=== PATIENT | female | born 1985 | race Caucasian/White ===

== ENCOUNTER 2022-05-22 07:48 | Outpatient (CLI) | payer OTHER | END 2022-05-22 23:59 | disposition home or self-care (01) | LOC: LAB 07:48 | PROVIDERS: ATTEND Obstetrics & Gynecology | DX: Z01.812 Encounter for preprocedural laboratory examination (principal); Z20.822 Contact with and (suspected) exposure to COVID-19 ==

== ENCOUNTER 2022-05-23 09:15 | Day surgery (SDC) | payer OTHER ==
[~2022-05-23 09:15] MED LIST: FERRIC SUBSULFATE 8 ML SOLUTION TP ONE; SILVER NITRATE APPLICATOR STICK EACH TP ONE
[2022-05-23 09:46] LABS: *BILIRUBIN,URIN NEGATIVE (NEGATIVE); *CLARITY,URINE CLEAR (CLEAR); *COLOR,URINE YELLOW (YELLOW); *KETONES,URINE NEGATIVE (NEGATIVE); *UROBILINOGEN,URINE 0.2 E.U./dl (NORMAL); LEUKOCYTE ESTERASE ,URINE NEGATIVE (NEGATIVE); NITRITE, URINE NEGATIVE (NEGATIVE); UGLUCOSE NEGATIVE (NEGATIVE)
[2022-05-23 09:49] LABS: *BLOOD, URINE TRACE (NEGATIVE)
[2022-05-23 09:51] LABS: *URINE HCG, QUAL NEGATIVE (NEGATIVE)
[2022-05-23 09:52] LABS: MEAN CORPUSCULAR HEMOGLOBIN 24.6 uug (24.7-32.8); MEAN CORPUSCULAR VOLUME 75.3 fL (75.5-95.3); PLATELET COUNT (AUTO) 264 K/uL (179-408)
[2022-05-23] MEDS ORDERED: FENTANYL CITRATE 100 MCG/2 ML AMPUL ONE (10:15)
[2022-05-23] MEDS ORDERED: MIDAZOLAM HCL 2 MG/2 ML VIAL ONE (10:15)
[2022-05-23 10:26] LABS: CREATININE 0.8 mg/dL (0.6-1.3)
[2022-05-23 10:39] LABS: RBC,URINE 0-3 /HPF (0-3)
[2022-05-23 10:40] LABS: BACTERIA,URINE NONE SEEN /HPF (NONE SEEN); SQUAMOUS EPITHELIAL CELL,UR FEW /HPF (NONE SEEN); WBC,URINE 0-3 /HPF (0-3)
[2022-05-23] MEDS ORDERED: HYDROMORPHONE 1 MG/1 ML DISP.SYRIN ONE (11:42)
[2022-05-23] MEDS ORDERED: ONDANSETRON 4 MG/2 ML VIAL ONE ×2 (11:43→12:30)
[2022-05-23] MEDS ORDERED: CEFAZOLIN 1 G VIAL ONE (12:30)
[2022-05-23] MEDS ORDERED: DEXAMETHASONE SOD PHOSPHATE 4 MG INJ ONE (12:30)
[2022-05-23] MEDS ORDERED: LIDOCAINE-MPF 2% 5 ML VIAL ONE (12:30)
[2022-05-23] MEDS ORDERED: PROPOFOL 200 MG/20 ML BOTTLE ONE (12:30)
[2022-05-23] MEDS ORDERED: TRAMADOL HCL 50 MG TABLET PO ONE (13:24)
[2022-05-23] MEDS ORDERED: TRAMADOL HCL 50 MG TABLET ONE (13:24)
[2022-05-23] MEDS ORDERED: MAG HYDROX/AL HYDROX/SIMETH 30 ML LIQUID UDC PO PRN (14:00)
== END 2022-05-23 14:50 | disposition home or self-care (01) ==
LOC: DS 09:15
PROVIDERS: ATTEND Obstetrics & Gynecology
DX: N84.0 Polyp of corpus uteri (principal); R73.09 Other abnormal glucose; N93.8 Other specified abnormal uterine and vaginal bleeding; Z79.899 Other long term (current) drug therapy; Z98.890 Other specified postprocedural states
CPT/HCPCS: 58558; 80048; 85025; 84703; 85730; 81001; 36415; J0690; J1100; J3490; J2250; J2405 ×2; J3010; J1170; J7120; A4663